=== PATIENT | male | born 1985 | race Caucasian/White ===

== ENCOUNTER → 2018-12-19 | Outpatient (CLI) | payer OTHER ==
[~2018-12-19] MED LIST: NO HOME MEDICATIONS
== END ==
LOC: COL.VAS 10:27
DX: R42 Dizziness and giddiness (principal); R06.09 Other forms of dyspnea

== ENCOUNTER → 2019-01-10 | Outpatient (CLI) | payer OTHER | LOC: COL.CARD 07:48 | DX: R00.0 Tachycardia, unspecified (principal); R94.31 Abnormal electrocardiogram [ECG] [EKG] ==

== ENCOUNTER 2019-01-30 05:53 | Day surgery (SDC) | payer OTHER ==
[2019-01-30] VITALS (231 sets, daily range): BP systolic 86–137; BP diastolic 49–92; PULSE 37–73; TEMP 98.7; O2SAT 55–100
[~2019-01-30] VITALS: Ht 188 cm; Wt 85.9 kg
[2019-01-30 06:55] LABS: HEMATOCRIT 42.5 % (42.0-52.0); HEMOGLOBIN 15.6 g/dl (13.5-18.0); MEAN CELL VOLUME 87 fl (80.0-100.0); MEAN CORPUSCULAR HEMOGLOBIN 32 pg (27.0-31.0); MEAN CORPUSCULAR HGB CONC 37 g/dl (33.0-37.0); MEAN PLATELET VOLUME 9.4 fl (7.4-10.4); PLATELET COUNT 250 K/mm3 (130-400); RED BLOOD COUNT 4.89 M/mm3 (4.20-5.60); REDCELL DISTRIBUTION WIDTH-CV 11.4 % (11.5-14.5)
[2019-01-30 07:07] LABS: INR 1.1 (0.8-3.0); PROTHROMBIN TIME 12.6 SECONDS (9.7-12.8)
[2019-01-30 07:16] LABS: CALCIUM 9.8 mg/dL (8.4-10.2); CREATININE, serum 1.05 (0.66-1.25); POTASSIUM 3.9 mmol/L (3.4-5.0)
[2019-01-30] MEDS ORDERED: TOPROL XL 50MG50 MG PO (07:45)
--- NOTE | 2019-01-30 08:42 | NUR ---
ALL MEDICATIONS GIVEN VORB WITH MD. SEE MERGE FOR ALL MEDICATION ADMIN TIMES. SEE MERGE FOR ALL RASS ASSESSMENTS DURING AND POST PROCEDURE. POSITIVE BARBEAU'S TEST IN THE RIGHT WRIST, RADIAL PULSE +2.
--- NOTE | 2019-01-30 09:24 | NUR ---
Patient transported back to room 12 at this time. Patient hooked back up to monitoring equipment and ECG. VS stable. Patient denies any pain at this time. Visualized right radial site with JORGE Rodriguez. TR remains in place with 12 mls of air in the band. No oozing or hematoma present. Site is soft and nontender, cap refill <3 seconds. Discussed importance of wrist restrictions with patient and family. Bed in locked and lowest position, call light within reach.
--- NOTE | 2019-01-30 11:35 | NUR ---
3ml of air released, slight bleeding at sight observed.3 ml of air restored back into band.
--- NOTE | 2019-01-30 12:44 | NUR ---
At 1135 3 ml of air was removed from band and replaced due to slight bleeding when attempting to release air from radial band.Pt alert and orientated x 3,asking appropriate questions,family at bedside.This nurse left room and maintenance mechanic telephone reported pt heart rate dipped to mid 30s.This nurse checked on pt.Pt observed alert and orientated,reports he "looked at arm band and felt nauseated." Pt is observed diaphoretic,pale and reports nausea.Yara,Charge nurse called to room at 1141.BP 86/49, heart rate 37,RR 16.Pt placed on oxygen at 2 liters via nasal cannula.Dr Gar called at 1143 by this nurse.IV fluids ran open for half a liter per Dr Gar instructions.Cool cloth applied to forhead.Pt monitored closely. Dr Gar notifed at 1206 pt hr in 50's,and strips printed for his review.Family at bedside.
--- NOTE | 2019-01-30 14:50 | NUR ---
Discharge instructions given to pt.pt verbalizes understanding.INT removed,catheter tip intact.Dressing clean,dry,intact at right radial site.
== END 2019-01-30 17:40 | disposition home or self-care (01) ==
LOC: COL.CAR 05:53
PROVIDERS: Internal Medicine Cardiovascular Disease
DX: I47.2 Ventricular tachycardia (principal); Z88.0 Allergy status to penicillin; Z77.22 Contact with and (suspected) exposure to environmental tobacco smoke (acute) (chronic); Z82.49 Family history of ischemic heart disease and other diseases of the circulatory system
CPT/HCPCS: J1644; J2250; J3010; Q9967

== ENCOUNTER → 2019-06-03 | Outpatient (CLI) | payer OTHER ==
[~2019-06-03] MED LIST changes: +TOPROL XL 50MG50 MG PO
== END ==
LOC: COL.RAD 11:46
DX: I47.2 Ventricular tachycardia (principal)